=== PATIENT | male | born 1995 | race Asian ===

== ENCOUNTER 2019-05-30 21:42 | Outpatient (CLI) | payer OTHER | END 2019-05-30 21:48 | disposition short-term general hospital (02) | LOC: AMB 21:42 | DX: R11.10 Vomiting, unspecified (principal); R41.82 Altered mental status, unspecified | CPT/HCPCS: A0425; A0429 ==

== ENCOUNTER 2019-05-30 21:48 | Emergency (ER) | payer OTHER ==
[~2019-05-30] VITALS: Ht 172.7 cm; Wt 72.6 kg
[2019-05-30 22:39] LABS: PLATELET COUNT 257 K/uL (142-355)
[2019-05-30 22:50] LABS: POTASSIUM 3.9 mmol/L (3.6-5.2); SODIUM 136 mmol/L (136-145)
[2019-05-30 23:12] LABS: PARTIAL THROMBOPLASTIN TIME 24.3 SECONDS (24.5-33.6)
[2019-05-30 23:39] VITALS: BP 141/63; TEMP 99.5
== END 2019-05-31 00:20 ==
LOC: EDBD 21:56 → ED 21:56
PROVIDERS: Hospitalist
DX: R11.2 Nausea with vomiting, unspecified (principal); Z76.5 Malingerer [conscious simulation]
CPT/HCPCS: 36415; 80053; 80307; 80320; 80329; 81000; 82962; 84484; 85027; 85610; 85730; 93005; 96360; 96375; 99284; J2405